=== PATIENT | male | born 1950 | race Caucasian/White ===

== ENCOUNTER → 2018-02-24 11:26 | Outpatient (CLI) | payer MEDICARE, SELFPAY ==
--- NOTE | 2018-02-24 | DI.CT.S_ITS ---
PROCEDURE: CT ABDOMEN PELVIS W CON INDICATIONS: right inguinal mass TECHNIQUE: After the administration of oral and intravenous contrast, 5 mm thick sections acquired from the diaphragms to the symphysis. 5 mm thick coronal and sagittal reformats were performed. For radiation dose reduction, the following was used: automated exposure control, adjustment of mA and/or kV according to patient size. COMPARISON: None. FINDINGS: Image quality: Excellent. ABDOMEN: Lung bases: Lung bases are clear. Heart size is normal. Solid organs: Liver is normal in size and enhancement. Note is made of a 1.2 cm right hepatic cyst just beneath the dome of the right hemidiaphragm. Gallbladder appears normal. Biliary system is non-dilated. Pancreas enhances normally. Spleen is normal in size and enhancement. No adrenal nodules. Kidneys are normal in size and enhancement, without hydronephrosis. Peritoneum and bowel: Stomach, small bowel, and colon loops are normal in caliber and wall thickness. No free fluid or air. Nodes and vessels: No retroperitoneal or mesenteric adenopathy. Aorta and inferior vena cava are normal in caliber. Miscellaneous: No ventral hernias. PELVIS: Genitourinary: Bladder wall thickness is normal. Miscellaneous: No adenopathy. There is a moderate-sized small bowel containing inguinal hernia on the right, and tracking inferiorly almost to the upper margin of the right hemiscrotum. No sign of edema is present that would indicate incarceration/strangulation. No obstructive influence on the bowel more superiorly is found. Bones: No suspicious bony lesions. No vertebral body compression fractures. IMPRESSION: 1. A moderate-sized right inguinal hernia is seen containing normal-appearing small bowel, and there is no sign of incarceration or strangulation of the bowel involved. 2. Reportedly there may be an inflammatory process in the perirectal region-no abscess or inflammation in this area is found. Note is made of moderate diverticulosis involving sigmoid colon, without acute diverticulitis. Dictated by: Jayme Anand M.D. on 02/24/2018 at 13:10 Approved by: Jayme Anand M.D. on 02/24/2018 at 13:13
== END ==
PROVIDERS: Family Provider Physician Assistant; PCP Psychiatry & Neurology Psychiatry; Visit Provider Nurse Practitioner Acute Care
DX: K40.90 Unilateral inguinal hernia, without obstruction or gangrene, not specified as recurrent (principal)
CPT/HCPCS: 74177; Q9967

== ENCOUNTER → 2018-03-22 09:26 | Outpatient (CLI) | payer MEDICARE, SELFPAY ==
--- NOTE | 2018-03-22 | DI.US.S_ITS ---
PROCEDURE: US ABD AORTA ANEURYSM SCREEN INDICATIONS: ABRORMAL AAA SCREENING TECHNIQUE: Real time scanning was performed of the aorta and iliac arteries, with image documentation. COMPARISON: None. FINDINGS: Aorta: Proximal aortic diameter measures 2.3 cm. Mid-aorta measures 1.6 cm. Distal aortic diameter is 1.5 cm. Iliac arteries: Right common iliac artery measures 1.1 cm. Left common iliac artery measures 1.0 cm. IMPRESSION: Negative for aneurysm Dictated by: Oj Barnes M.D. on 03/22/2018 at 11:32 Approved by: Oj Barnes M.D. on 03/22/2018 at 11:33
== END ==
PROVIDERS: Family Provider Physician Assistant; PCP Psychiatry & Neurology Psychiatry; Visit Provider Student in an Organized Health Care Education/Training Program
DX: Z13.6 Encounter for screening for cardiovascular disorders (principal)
CPT/HCPCS: 76706

== ENCOUNTER → 2018-04-03 12:39 | Outpatient (CLI) | payer MEDICARE, SELFPAY ==
[2018-04-03 13:18] LABS: Hematocrit 52.8 % (41-53); Hemoglobin 18.4 g/dL (13.5-17.5); Mean Corpuscular HGB Conc 34.9 % (30-36); Mean Corpuscular Hemoglobin 32.1 PG (26-34); Platelet Count 287 X10^3/uL (150-400); Red Blood Cell Count 5.74 X10^6/uL (4.5-5.9); Red Cell Distribution Width 13.6 % (11.6-14.8); White Blood Cell Count 7.7 X10^3/uL (4.5-11.0)
[2018-04-03 14:20] LABS: Alanine Aminotransferase 35 IU/L (21-72); Albumin 4.5 g/dL (3.5-5.0); Albumin Globulin Ratio 1.7 (1.0-2.8); Alkaline Phosphatase 58 U/L (38-126); Aspartate Aminotransferase 26 IU/L (17-59); BUN Creatinine Ratio 17.1 (6-22); Bilirubin Total 0.6 mg/dL (0.2-1.3); Blood Urea Nitrogen 12 mg/dL (9-20); Calcium 9.9 mg/dL (8.4-10.2); Carbon Dioxide 29 mmol/L (22-32); Chloride 99 mmol/L (98-107); Estimated Glomerular Filt Rate > 60.0 mL/min (>60); Globulin 2.7 g/dL (1.7-4.1); Glucose 97 mg/dL (80-110); HEMOLYSIS < 15 (0-50); Potassium 4.5 mmol/L (3.4-5.1); Sodium 140 mmol/L (137-145); Total Protein 7.2 g/dL (6.3-8.2)
== END ==
PROVIDERS: PCP Physician Assistant; Visit Provider Surgery
DX: K40.90 Unilateral inguinal hernia, without obstruction or gangrene, not specified as recurrent (principal); Z01.818 Encounter for other preprocedural examination
CPT/HCPCS: 36415; 80053; 85027; 93005

== ENCOUNTER 2018-04-07 07:56 | Day surgery (SDC) | payer MEDICARE, SELFPAY ==
[2018-04-04 09:34] VITALS: BMI 27.5
[2018-04-07] VITALS (14 sets, daily range): BP systolic 90–174; BP diastolic 70–115; PULSE 69–86; RESP 12–38; TEMP 36.1–36.6; O2SAT 90–98; BMI 27.5
[2018-04-07] MEDS: LACTATED RINGERS 1,000 ML 100 ML IV ×2 (08:42→11:32)
[2018-04-07] MEDS: CEFAZOLIN 2 GM/100 ML FROZ.PIGGY IV (09:29)
--- NOTE | 2018-04-07 10:00 | SUR.OPER ---
Supine on padded OR bed, head on pillow, arm padded and tucked at side, legs uncrossed, safety belt at thigh, tape over blanket over lower legs .
[2018-04-07] MEDS: BUPIVACAINE 0.25% W/ EPI VIAL 50 ML INJ ×2 (10:14→16:58)
--- NOTE | 2018-04-07 10:54 | PM.OP.1 ---
Operative Date/Time/Diagnoses Date of procedure: 04/07/18 Time of procedure: 10:54 Pre-op diagnosis: Enlarging Right inguinal hernia Post-op diagnosis: other (Direct reducible inguinal hernia containing small bowel with pantaloon component indirect sac reduced completely) Procedure & Clinicians Procedure: Laparoscopic right inguinal hernia repair with mesh, [address]116 Same procedure as scheduled: Yes Indications: Symptomatic enlarging RIH Surgeon: Donny Noe Click Yes if Unassisted: No Anesthesia Type: General Operative Notes Closure Type: primary Specimen(s): none sent Implants & Drains: Covidien parietex shaped R sided inguinal hernia mesh fixed with asorbatacks Estimated Blood Loss (mL): 5 Blood products transfused: none Procedure in detail: After informed consent was discussed with the patient and his daughter he was given antibiotics taken to the operating room and intubated by Dr. Hawk, SCDs were placed as left arm was tucked he was prepped and draped in the usual sterile fashion and a safety time-out completed. Small curvilinear incision was made in the infraumbilical fashion and we dissected subcutaneously to the right rectus anterior sheath and opened the anterior sheath. Stay sutures of 0 Vicryl were placed in the horizontal mattress fashion and the rectus muscle was opened and spared in the posterior sheath was found 12 mm balloon trocar was placed into the rectus muscle sheath and insufflation was begun. Patient was now placed in steep Trendelenburg position and using the 5 mm laparoscoped the retro rectus space was created into the preperitoneal space identifying the pubic tubercle and an obvious large right inguinal hernia which was incarcerated. The vertebral was followed along the arc of the pubis to the left crossing midline over above the inguinal hernia to the right opening up the lateral space to the right allowing placement for a low left-sided 5 mm trocar under direct vision avoiding the epigastric vessels and a right-sided trocar avoiding the epigastric vessels under direct vision. Obturator hernia was not seen we isolated out the direct hernia and the hernia sac was from the preperitoneal adipose and inter abdominal fat which was reduced and a moderate to large sized right direct hernia was clearly seen. Cord structures were now seen in an a fairly large indirect inguinal hernia sac was now dissected completely away from the cord structures preserving all vessels and vas deferens. The lateral area was opened to allow placement for the mesh tail. Once all structures were identified the right-sided Covidien preformed Parietex mesh was now placed in the preperitoneal space through the 12 mm trocar under direct vision and unfurled with the tail going out laterally. It was fixed Antoine's ligament with overlapping the midline covering our direct inguinal hernia completely tacks were placed in the rectus sheath along the conjoined tendon avoiding anything medial to the epigastric vessels several tacks were placed in Antoine's ligament tear avoiding anything posterior or near the great vessels. Mesh was then un continued unfurled and held in place anteriorly in rostrally wall the area was desufflated after looking for any bleeding both testicles were confirmed in the scrotum and the scrotum was desufflated after removing trocars. Stay sutures of the right anterior rectus sheath were now closed confirming the appropriate fascial approximation. Skin was now closed with 4 0 monofilament in a running or interrupted fashion and skin glue was placed the patient tolerated the procedure nicely was taken to the PACU after being extubated. Complications: none Condition: stable Disposition: PACU Plan for aftercare: [place] to home. Close follow up Instructions to daughter and patient Julio is an RN Oxycodone and tylenol Miralax
[2018-04-07] MEDS: fentaNYL 100 MCG/2 ML INJ 50 MCG IV ×2 (11:10→11:16)
--- NOTE | 2018-04-07 11:23 | PM.OP.1 ---
Operative Date/Time/Diagnoses Date of procedure: 04/07/18 Time of procedure: 10:23 Pre-op diagnosis: Symptomatic enlarging RIH Post-op diagnosis: other (Symptomatic enlarging RIH, Large direct component with indirect sac reduced completely. Pantaloon anatomy) Procedure & Clinicians Procedure: Laparscopic totally extraperitoneal Right inguinal hernia repair 07403 Same procedure as scheduled: No
--- NOTE | 2018-04-07 11:39 | SUR.PHASEI ---
pt did not wake up out of anesthesia easily . anesthesiologist remained a t bedside. pt kicking and thrashing unable to follow commands. pulling at all monitoring equipment, o2 and ivs. however was able to wake up and wean from oral airway, to simple mask to nasal canula and eventually room air. however it was noted that r groin appeared as if inguinal hernia returned. Dr Noe in to assess and decided to return to OR to reduce hernia again.
--- NOTE | 2018-04-07 12:00 | SUR.PHASEII ---
daughter aware of need to return to surgery and pt is now alert and orierbnted x 3. will hold in phase II until or IS AVAILABLE
--- NOTE | 2018-04-07 12:13 | PM.PN.1 ---
Subjective Date Patient Seen: 04/07/18 Time Patient Seen: 12:13 Interval history: Patient awoke from anesthesia and required 3 people to control him. He was tearing off his mask, kicking and bucking. Unfortunately his RIH has recurred in the PACU. After the anesthesia wore off, I re-examined him and found that his RIH may have recurred acutely with possible small intestine in the hernia again. I consented him and his daughter for return to the OR today for laparoscopic evaluation. He understands risks and benefits of surgery including infection, bleeding injury to large or small bowel, bladder and other. He wishes to proceed consent is signed. Exam Vital Signs (past 8 hours): - 04/07/18 08:35 04/07/18 10:50 04/07/18 10:55 Temperature 97.6 F 97 F L 98 F Pulse Rate 86 81 72 Respiratory Rate 16 34 H 38 H Blood Pressure 113/83 H 135/97 H 135/98 H Pulse Oximetry 93 90 L 98 04/07/18 11:00 04/07/18 11:15 04/07/18 11:30 Temperature 98 F 98 F 97.5 F L Pulse Rate 75 75 76 Respiratory Rate 12 16 15 Blood Pressure 168/111 H 174/114 H 153/115 H Pulse Oximetry 95 94 94 04/07/18 11:45 04/07/18 12:00 Temperature 97.5 F L 97.5 F L Pulse Rate 76 76 Respiratory Rate 16 16 Blood Pressure 148/104 H 142/102 H Pulse Oximetry 95 95 Oxygen Delivery Method Room Air Oxygen Flow Rate 2
--- NOTE | 2018-04-07 12:21 | P.OP_ITS ---
Operative Date/Time/Diagnoses Date of procedure: 04/07/18 Pre-op diagnosis: Possible recurrent right inguinal hernia acutely after repair. Post-op diagnosis: other (Lateral folding of the mesh with acute recurrence of inguinal hernia. Repaired with DARYL technique.) Procedure & Clinicians Indications: Patient is a very pleasant 68-year-old male who underwent a laparoscopic right direct and indirect inguinal hernia repair with preperitoneal technique earlier today. In the PACU he awoke with significant physical activity and disorientation, was kicking and thrashing trying to remove all oxygen masks and IVs. It took 3 people to restrain him. During this time the anesthesiologist alerted me that he felt his inguinal hernia repair may have dehisced or he may have caused a piece of bowel to slip under the mesh. I examined the patient and was concerned about similar finding the patient was calm down and after his anesthetic wore off was able to examine him and found similar concerns. His daughter was brought to the post anesthesia care unit and I discussed these findings as well as the need to return to the operating room today for laparoscopic evaluation and possible replacement or repositioning of the mesh as his hernia may have recurred and the possibility of a normal diagnostic laparoscopy without evidence of complication. The patient understands and wishes to proceed. Risks and benefits including infection bleeding injury to bowel injury to intra-abdominal contents injury to bladder all described. Surgeon: Donny Noe Click Yes if Unassisted: Yes Anesthesia Type: General Operative Notes Closure Type: primary Specimen(s): none sent Estimated Blood Loss (mL): 5 Blood products transfused: none Procedure in detail: Patient was taken to the operating room where general endotracheal anesthesia was performed SCDs have been placed and were functioning safety time-out completed both arms were tucked with gel pads to secure the operating room table prep and drape was performed in the usual sterile fashion. Prior infraumbilical incision was opened and using the visualizing 5 mm trocar the preperitoneal space was re-entered the mesh was still in place but it appeared that it has been medially retracted as a possible recurrent or persistent indirect inguinal hernia I then entered the peritoneal cavity with the same trocar under direct vision reinserting the trocar inserted and 4 quadrant laparoscopy showed no evidence of intra- abdominal or vascular injury. Patient was placed in steep reverse starts deep Trendelenburg position now on using the prior right and left lateral trocar sites local anesthetic was placed and 5 mm trocars were placed under direct vision the peritoneal investment was taken down over the arcuate line and the mesh was seen to be medialized and a peritoneal sac and resected around the mesh this was now re-reduced and the mesh was straightened and secured to the rectus fascia. 2 more tacks were placed in Antoine's ligament of the direct hernia was remained repaired well now the mesh was flattened the peritoneal cavity was then re-seated old with absorbent tacks anteriorly away from the entry of the ilioinguinal iliohypogastric nerves. Laparoscopic assessment of the peritoneal cavity was now performed with no bleeding or injury seen. Desufflation was performed. Skin was now closed with 4 0 monofilament and skin glue. 15 cc of 0.25% Marcaine with epinephrine was used for ilioinguinal block on the lateral ASIS just medial and in the abdominal wall as well as at all trocar sites with a total of 30 cc used. Patient was extubated without difficulty and taken to the PACU breathing on his own volition. Complications: none Condition: stable Disposition: PACU Plan for aftercare: Home after he voids. Avoid all heavy lifting Discussed findings with daughter Tiffanie.
--- NOTE | 2018-04-07 16:20 | SUR.PREOP ---
Pt remained in the OPD after his first surgery. His VS remained stable and he denied pain. He is resting quietly with his daughter at the bedside. at 1615 pt was taken back into the OR.
--- NOTE | 2018-04-07 16:43 | SUR.OPER ---
Supine on padded OR bed, head on pillow, safety belt at thigh, both arms padded and tucked at side. . Legs uncrossed. Padded footboard in place. Tape over blanket to secure lower legs.
--- NOTE | 2018-04-07 17:47 | SUR.PHASEI ---
This author has assumed care for this pt. as of 173. Pt. remains asleep and dghtr at bedside. VSS. Currently, lungs sounds clear, no sputum noted, oral airway remains in place and NC with O2 @ 4.5L/min
== END 2018-04-07 18:35 | disposition home or self-care (01) ==
PROVIDERS: Family Provider Physician Assistant; PCP Physician Assistant; Visit Provider Surgery
PROC: 0YQ54ZZ Repair Right Inguinal Region, Percutaneous Endoscopic Approach (ICD-10-PCS; CPT 49650; principal; 2018-04-07 09:15)
PROC: (CPT 45990; principal; 2018-04-07 13:45)
DX: K40.90 Unilateral inguinal hernia, without obstruction or gangrene, not specified as recurrent (principal); F33.9 Major depressive disorder, recurrent, unspecified; I10 Essential (primary) hypertension; Y83.8 Other surgical procedures as the cause of abnormal reaction of the patient, or of later complication, without mention of misadventure at the time of the procedure; Y73.3 Surgical instruments, materials and gastroenterology and urology devices (including sutures) associated with adverse incidents; Y92.234 Operating room of hospital as the place of occurrence of the external cause
CPT/HCPCS: 49650 ×2; C1781; J0690; J1100; J1885; J2250; J2405; J2704; J3010

== ENCOUNTER 2018-04-08 03:51 | Emergency (ER) | payer MEDICARE, SELFPAY ==
[2018-04-08 03:58] VITALS: BP 130/90; PULSE 109; RESP 20; TEMP 37; O2SAT 96; BMI 27.2
--- NOTE | 2018-04-08 04:08 | ED_ITS ---
HPI - Male Genitourinary General Chief complaint: Urogenital-Male Stated complaint: SURGERY COMPLICATIONS Time Seen by Provider: 04/08/18 03:57 Source: patient Mode of arrival: ambulatory Limitations: no limitations History of Present Illness HPI Narrative: 68-year-old male with chief complaint of inability to urinate since 6:00 a.m.. He was seen at our hospital and had a hernia repair today. He has increasing suprapubic tenderness but denies any fever or chills nor nausea or vomiting. He denies chest pain or shortness of breath Related Data Home Medications Medication Instructions Recorded Confirmed hydrochlorothiazide 12.5 mg PO DAILY #0 02/11/07 04/08/18 lisinopril 10 1 tab PO DAILY 04/03/18 04/08/18 mg-hydrochlorothiazide 12.5 mg tablet Previous Rx's Medication Instructions Recorded oxycodone 10 mg PO Q4-6H PRN #20 cap 04/07/18 Allergies Allergy/AdvReac Type Severity Reaction Status Date / Time hydromorphone [From Dilaudid] AdvReac Unknown Verified 04/08/18 03:58 meperidine [From Demerol] AdvReac Unknown Verified 04/08/18 03:58 Review of Systems Review of Systems All systems reviewed & are unremarkable except as noted in HPI and below Constitutional Denies chills, Denies fever(s), Denies lethargy and Denies weakness Eyes Denies change in vision, Denies eye discharge, Denies irritation and Denies loss of vision ENT Ears, Nose, Mouth, and Throat: Denies change in voice, Denies neck pain and Denies sore throat Cardiovascular Denies chest pain, Denies irregular heart rhythm, Denies lightheadedness, Denies palpitations, Denies dyspnea, Denies dyspnea on exertion and Denies orthopnea Respiratory Denies cough, Denies dyspnea, Denies dyspnea on exertion and Denies wheezing Gastrointestinal Gastrointestinal: Denies abdominal pain, Denies change in bowel habits, Denies diarrhea, Denies nausea and Denies vomiting Genitourinary Denies hematuria, Reports difficulty urinating, Denies flank pain, Denies urinary incontinence and Denies urinary urgency Musculoskeletal Denies neck pain Integumentary/Breasts Denies pruritus, Denies erythema, Denies rash and Denies wounds Neurologic Denies confusion, Denies loss of vision and Denies weakness Psychiatric Denies anxiety, Denies confusion, Denies depression, Denies homicidal ideation and Denies suicidal ideation Endocrine Denies palpitations Hematologic/Lymphatic Denies easy bruising Allergic/Immunologic Denies wheezing PFSH Medical History Depression (Chronic) Erythromelalgia (Chronic) HTN (hypertension) (Chronic) Umbilical hernia (Resolved) Surgical History H/O lithotripsy (Chronic) Social History household members: none Smoking Status: Never smoker alcohol intake: never substance use type: other Exam Initial Vital Signs Initial Vital Signs: Vital Signs Temperature 98.6 F 04/08/18 03:58 Pulse Rate 109 H 04/08/18 03:58 Respiratory Rate 20 04/08/18 03:58 Blood Pressure 130/90 H 04/08/18 03:58 Pulse Oximetry 96 04/08/18 03:58 Const General: cooperative, well developed and in distress Nutritional Appearance: well nourished Orientation: alert, awake, oriented x3 and not confused Resp Effort & Inspection: normal respiratory effort, able to speak in complete sentences, no respiratory distress and no use of accessory muscles Auscultation: clear to auscultation bilaterally, no rales, no rhonchi and no wheezes Cardio Rate: regular rate Rhythm: regular rhythm Heart Sounds: no click, no gallops, no murmurs and no rubs Pulses: normal peripheral pulses GI Inspection: non-distended Palpation: soft, no hepatosplenomegaly, No guarding, No pulsatile mass and tender (Minor suprapubic tenderness) Auscultation: normal bowel sounds Other: Incisions are clean, dry, and intact Skin General: no rashes or lesions noted, No jaundice and No petechiae Extrem General: full ROM, no clubbing, cyanosis or edema, no pedal edema and no calf tenderness Course Reevaluation(s) Reevaluation #1: Bladder scan notes 100+ mL in the bladder. Burns catheter easily placed the patient experiences near immediate relief Vital Signs - 8 hr 04/08/18 03:58 Temperature 98.6 F Pulse Rate 109 H Respiratory Rate 20 Blood Pressure 130/90 H Pulse Oximetry 96 Discharge Plan Departure Patient Disposition: Home, Self-Care Clinical Impression: Acute retention of urine Instructions: DI for Urinary Retention in Men Activity Restrictions/Additional Instructions: *You have been diagnosed with [ acute urinary retention ] *What to do: *Take medications as directed *Follow up with your surgeon or the urologist listed below in 2-3 days, call for an appointment. Let them know you were seen in the Emergency Department and that we ask that you be seen in follow up *Return to ER if you should have any new, worsening or concerning symptoms , such as [increasing pain, fever or chills, persistent nausea and vomiting, or other bothersome symptoms ] Prescriptions: No Action hydrochlorothiazide 12.5 mg Capsule 12.5 mg PO DAILY Qty: 0 RF: 0 lisinopril-hydrochlorothiazide 10-12.5 mg tablet 1 tab PO DAILY RF: 0 oxycodone 5 mg capsule 10 mg PO Q4-6H PRN (Reason: pain) Qty: 20 RF: 0 Referrals: Orlando Francis MD [Non-Staff] - Libby Kiser PA-C [Primary Care Provider] -
== END 2018-04-08 04:36 | disposition home or self-care (01) ==
PROVIDERS: Emergency Provider Emergency Medicine; Family Provider Physician Assistant; PCP Physician Assistant
DX: R33.9 Retention of urine, unspecified (principal)
CPT/HCPCS: 51701; 51798; 99283

== ENCOUNTER 2018-07-09 11:16 | Inpatient (IN) | payer MEDICARE, SELFPAY ==
[2018-07-09] VITALS (12 sets, daily range): BP systolic 93–133; BP diastolic 56–102; PULSE 69–110; RESP 15–20; TEMP 36.4–37.2; O2SAT 95–100; BMI 26.5
--- NOTE | 2018-07-09 | PATH_ITS ---
[facility] Accession Number: [id number] . 01 Material submitted: . INFECTED BUTTOCKS CYST . 01 Diagnosis: Buttocks, Excision: Epidermal inclusion cyst, ruptured, with marked inflammation, scar and reactive changes, microabscess formation, and areas with granulation tissue formation. MRV/07/14/2018 . 01 Electronically signed: . Eleanor Jim MD, Dermatopathologist NPI- [id number] . 01 Gross description: . Received in formalin, labeled infected buttocks cyst, are multiple pieces of chavis-yellow rubbery membranous and fatty tissue (5.5 x 4.5 x 1.8 cm in aggregate. The apparent resection margin is inked black. Fountain Helper serial sections submitted in cassettes A1 and A2. ([id number]) Additional sections: (A3, A4) Additional retail representative tissue. (:[id number]) /MRV . 01 Pathologist provided ICD-10: L72.0 . 01 CPT . 144709 Specimen Comment: A duplicate report has been generated due to demographic updates. Performed at: [address] [facility] [address], [place], [place] [id number] MD Alfred Shepherd MD Phone: [phone]
--- NOTE | 2018-07-09 11:16 | ER_ITS ---
HPI - Skin/Abscess/Foreign Bdy General Source: patient and family Mode of arrival: ambulatory Limitations: no limitations History of Present Illness HPI narrative: 68-year-old male, nonsmoker presents with a chief complaint of a painful abscess in his right buttock. He states this is the 8th time he has had a recurrence in the same location. He states it is very painful to sit. He denies fever or chills but feels a bit nauseated. He denies any pain with bowel movement. He denies any ongoing drainage. He has never had surgical consultation MD complaint: abscess/boil Onset (ago): day(s) Tetanus up to date: yes Location: buttocks Severity: moderate Pain Consistency: constant Relieving factors: none Exacerbating factors: palpation Context: none Associated symptoms: denies other symptoms Treatments prior to arrival: none Related Data Home Medications Medication Instructions Recorded Confirmed lisinopril 10 1 tab PO DAILY 04/03/18 07/26/18 mg-hydrochlorothiazide 12.5 mg tablet dextroamphetamine-amphetamine 20 mg PO BID 07/09/18 07/26/18 [Adderall] Allergies Allergy/AdvReac Type Severity Reaction Status Date / Time hydromorphone [From Dilaudid] AdvReac Unknown Verified 07/26/18 13:31 meperidine [From Demerol] AdvReac Unknown Verified 07/26/18 13:31 Review of Systems Review of Systems All systems reviewed & are unremarkable except as noted in HPI and below Constitutional Denies chills, Denies fever(s), Denies lethargy and Denies weakness Eyes Denies change in vision, Denies eye discharge, Denies irritation and Denies loss of vision ENT Ears, Nose, Mouth, and Throat: Denies change in voice, Denies neck pain and Denies sore throat Cardiovascular Denies chest pain, Denies irregular heart rhythm, Denies lightheadedness, Denies palpitations, Denies dyspnea, Denies dyspnea on exertion and Denies orthopnea Respiratory Denies cough, Denies dyspnea, Denies dyspnea on exertion and Denies wheezing Gastrointestinal Gastrointestinal: Denies abdominal pain, Denies change in bowel habits, Denies diarrhea, Denies nausea and Denies vomiting Genitourinary Denies hematuria, Denies flank pain, Denies urinary incontinence and Denies urinary urgency Musculoskeletal Denies neck pain Integumentary/Breasts Denies pruritus, Reports erythema, Denies rash, Reports skin pain, Reports skin swelling and Denies wounds Neurologic Denies confusion, Denies loss of vision and Denies weakness Psychiatric Denies anxiety, Denies confusion, Denies depression, Denies homicidal ideation and Denies suicidal ideation Endocrine Denies palpitations Hematologic/Lymphatic Denies easy bruising Allergic/Immunologic Denies wheezing [facility] Medical History Depression (Chronic) Erythromelalgia (Chronic) HTN (hypertension) (Chronic) Umbilical hernia (Resolved) Surgical History H/O vasectomy (Acute) History of tonsillectomy (Acute) H/O lithotripsy (Chronic) Family History Mother Congestive heart failure Father Pancreatic cancer Social History household members: none Smoking Status: Current every day smoker alcohol intake: never substance use type: other Exam Narrative Exam Narrative: GENERAL: This is a well-nourished, well-developed patient, in mild distress. HEAD: Atraumatic. Normocephalic. No temporal or scalp tenderness. EYES: Pupils equal round and reactive. Extraocular motions intact. No scleral icterus. No injection or drainage. ENT: Nose without bleeding, purulent drainage or septal hematoma. Throat without erythema, tonsillar hypertrophy or exudate. Uvula midline. Airway patent. NECK: Trachea midline. No JVD or lymphadenopathy. Supple, nontender, no meningeal signs. CARDIOVASCULAR: Regular rate and rhythm without murmurs, gallops, or rubs. RESPIRATORY: Clear to auscultation. Breath sounds equal bilaterally. No wheezes , rales, or rhonchi. GASTROINTESTINAL: Abdomen soft, non-tender, nondistended. No hepato-splenomegaly , or palpable masses. No guarding. Large fluctuant, presumably deep abscess on right buttock. No spontaneous drainage. No erythema extending to anus EXTREMITIES: No clubbing, cyanosis, or edema. No joint tenderness, effusion, or edema noted. BACK: Nontender without deformity or crepitance. No flank tenderness. NEURO: AOx3. SKIN: No rash or erythema except what is noted above Course Reevaluation(s) Reevaluation #1: Dr. Soni consulted given size of abscess and it's tendency to recur Discharge Plan Discharge Plan Discharge Problem: Abscess of buttock, right Patient Disposition: Admitted As Inpatient Discharge Med Rec/Prescriptions Prescriptions: No Action lisinopril-hydrochlorothiazide 10-12.5 mg tablet 1 tab PO DAILY RF: 0 dextroamphetamine-amphetamine [Adderall] 20 mg Tablet 20 mg PO BID RF: 0 Discharge Data Primary Care Provider: Libby Kiser Attending Provider: Chuck Liang Signed By:<Electronically signed by Ritchie Jimenez D.O.> 08/16/18 0882
[2018-07-09 12:16] LABS: Add Manual Diff / Slide Review NO; Basophils Percent Auto 0.3 % (0-2); Eosinophils Percent Auto 0.2 % (2-4); Hematocrit 47.4 % (41-53); Hemoglobin 16.2 g/dL (13.5-17.5); Lymphocytes Percent Auto 16.5 % (25-40); Mean Corpuscular HGB Conc 34.1 % (30-36); Mean Corpuscular Hemoglobin 31.2 PG (26-34); Mean Corpuscular Volume 91.3 fL (80-100); Monocytes Percent Auto 8.7 % (3-14); Neutrophils Absolute Auto 8900 /uL (3000-5900); Neutrophils Percent Auto 74.3 % (50-75); Platelet Count 313 X10^3/uL (150-400); Red Blood Cell Count 5.19 X10^6/uL (4.5-5.9)
[2018-07-09 12:26] LABS: Lactate (Lactic Acid) 1.3 mmol/L (0.7-2.1)
[2018-07-09] MEDS: SODIUM CHLORIDE 0.9% 1,000 ML 1000 ML IV (12:27)
[2018-07-09] MEDS: ONDANSETRON 4 MG/2 ML INJ IV (12:27)
[2018-07-09 12:28] LABS: BUN Creatinine Ratio 18.6 (6-22); Blood Urea Nitrogen 13 mg/dL (9-20); Calcium 8.8 mg/dL (8.4-10.2); Carbon Dioxide 29 mmol/L (22-32); Chloride 101 mmol/L (98-107); Estimated Glomerular Filt Rate > 60.0 mL/min (>60); Glucose 111 mg/dL (80-110); HEMOLYSIS < 15 (0-50); Potassium 3.4 mmol/L (3.4-5.1); Sodium 138 mmol/L (137-145)
--- NOTE | 2018-07-09 12:58 | PC.NURSE ---
Pt states he has never heard of this kind of enema (flepatsy). Is unhappy didnt have results
--- NOTE | 2018-07-09 14:31 | P.HP_ITS ---
History of Present Illness Date Patient Seen: 07/09/18 Time Patient Seen: 14:11 Chief complaint: abcess on top of butt Narrative: Patient is a gentleman with a recurrent abscess on his right buttock cheek. He has drain but never excised about 8 times over a 10 year. Often it spontaneously drains but has not done so this episode as of yet. He does not think he has ever been referred to a surgeon for excision but everybody says that it needs to be excised. He also gets a lesion the drains on his right lower lip. It is not inflamed at this time. He does not have any pain in his perirectal area. Pain increases with pressure on it. The symptoms began about 3 days ago. Patient History Medical History Depression (Chronic) Erythromelalgia (Chronic) HTN (hypertension) (Chronic) Umbilical hernia (Resolved) Surgical History H/O lithotripsy (Chronic) Family & Social History Family History: Reviewed 04/03/18 by Donny Noe MD Social History: household members none Safety & Behavioral: Feels Safe in Current Yes Environment Tobacco & Substance use: Smoking Status Current every day smoker alcohol intake never alcohol intake frequency 0-2 drinks per day Substance Use Type marijuana Meds Home Medications Medication Instructions Recorded Confirmed Type hydrochlorothiazide 12.5 mg PO DAILY #0 02/11/07 04/20/18 History lisinopril 10 1 tab PO DAILY 04/03/18 04/20/18 History mg-hydrochlorothiazide 12.5 mg tablet oxycodone 10 mg PO Q4-6H PRN #20 cap 04/07/18 04/08/18 Rx Allergies Allergy/AdvReac Type Severity Reaction Status Date / Time hydromorphone [From Dilaudid] AdvReac Unknown Verified 07/09/18 11:46 meperidine [From Demerol] AdvReac Unknown Verified 07/09/18 11:46 Review of Systems Review of Systems Patient denies fever chills night sweats. No visual difficulties other than wearing glasses. No double vision pain not eyes. No hearing problems or earaches. No tooth aches or trouble swallowing. No cough cold cold or asthma. No chest pain or heart problems. No black or bloody bowel movements. Last colonoscopy was about 15 years ago. Denies any blood in his urine or history kidney stones but is chart says he has had a lithotripsy. No dysuria. No seizures or blackouts. He has chronic depression and has been treated multiple times with electro shock therapy. Has chronic numbness of his feet from a neuropathy. No unusual bruising or bleeding. Exam Vital Signs (past 8 hours): - 07/09/18 11:26 07/09/18 13:00 Temperature 98.0 F Pulse Rate 110 H 91 H Respiratory Rate 19 18 Blood Pressure 133/102 H Blood Pressure [Right Arm] 117/81 Pulse Oximetry 100 98 Oxygen Delivery Method Room Air Narrative Exam Narrative: Operative pleasant gentleman lying on his side to avoid pressure to his buttock. No apparent distress. His eyes are nonicteric. Lungs are clear to auscultation no rales or rhonchi equal percussion. Heart regular rate and rhythm without murmur gallop. There are no bruits in the neck. Patient has no nodes in the neck or supraclavicular areas felt. Has a small cyst-like lesion at the edge of his jolene border right lateral lower lip. Trachea is midline and mobile. Thyroid is not enlarged. Abdomen is soft nontender. He has a scarred his umbilicus that is apparent. This is from a repair laparoscopically even inguinal hernia. Abdomen is otherwise soft nontender without mass. Patient is alert and oriented x3. Speech rate and content are appropriate. Affect is actually appropriate as well. Patient's left buttock cheap is bright red. In the center over what would be the ischial tuberosity is an area of induration flux central fluctuance. It is exquisitely tender. There is not really any redness extending toward the anus and the perianal tissues are not really tender or indurated. Objective Labs Result Diagrams: 07/09/18 12:00 07/09/18 12:00 Labs: Laboratory Results - last 24 hr 07/09/18 07/09/18 07/09/18 12:00 12:00 12:00 WBC 12.0 H RBC 5.19 Hgb 16.2 Hct 47.4 MCV 91.3 MCH 31.2 MCHC 34.1 RDW 13.0 Plt Count 313 Neut % (Auto) 74.3 Lymph % (Auto) 16.5 L [place] % (Auto) 8.7 Eos % (Auto) 0.2 L Baso % (Auto) 0.3 Neut # (Auto) 8900 H Sodium 138 Potassium 3.4 Chloride 101 Carbon Dioxide 29 BUN 13 Creatinine 0.70 Estimated GFR > 60.0 BUN/Creatinine Ratio 18.6 Glucose 111 H Lactate 1.3 Calcium 8.8 Assessment & Plan Plan: Assessment/Plan Narrative: Will proceed to drain a large abscess on his left buttock under general anesthesia. I have discussed the procedure with him. Risks of bleeding, infection, recurrence all discussed. I may or may not be able to excise the whole lesion. I may instead drain the pus and allowed the lesion to settle down and then excise it formally when the opening will be much smaller. It all depends on what I find. If the wall easily is dealt with I will excise it today. All questions were answered and he appears to understand and wishes to proceed.
--- NOTE | 2018-07-09 14:31 | PM.PREOP ---
Pre-operative Note Interval Note Pre-op Check: Yes History & Physical exam performed today by Physician Changes: No
[2018-07-09] MEDS: LACTATED RINGERS 1,000 ML 42 ML IV (14:58)
[2018-07-09] MEDS: CEFAZOLIN 2 GM/100 ML FROZ.PIGGY IV ×2 (15:15→22:50)
--- NOTE | 2018-07-09 16:14 | PM.OP.1 ---
Operative Date/Time/Diagnoses Date of procedure: 07/09/18 Time of procedure: 16:14 Post-op diagnosis: same (Probably chronically infected sebaceous cyst with abscess large of acute and chronic) Procedure & Clinicians Procedure: Incision and drainage of abscess excision of cyst wall. Abscess measured 8 x 8 cm. Cyst wall measured 4 x 6 cm Same procedure as scheduled: Yes Indications: Acute abscess in the face of chronic inflammation Surgeon: Kirt Soni Click Yes if Unassisted: Yes Anesthesia Type: General Operative Notes Findings: Very large abscess. Well-demarcated cyst wall. Chronic granulation tissue lining the cyst wall as well as the overlying skin Closure Type: non-primary (Not closed but packed open) Specimen(s): other (Culture plus cyst wall.) Implants & Drains: Packed open Estimated Blood Loss (mL): 40 Blood products transfused: none Procedure in detail: The patient was placed in the right lateral decubitus position on the OR bed after undergoing general LMA anesthesia. He was prepped and draped in usual fashion. Transverse incision was made overlying this abscess and a large amount of pus drained. It was cultured. I suctioned the pus out and examined the wall. There appeared to be a sebaceous cyst as the basis of this problem. I excise the wall which included tissues down to but did not seem to include the muscle fascia. After cutting away and noted that there was extensive granulation tissue under the skin. The measure of abscess on the external skin was about 8 x 8 cm. I debrided some of the skin but I used a curette and then sharply dissected tissue off of the overlying skin to remove all the granulation tissue. Once I was satisfied that the entire wall in all the granulation tissue was removed I obtained hemostasis with cautery. I irrigated the wound with saline copiously. Then I packed it with saline dampened Kerlix gauze covered with 4x4s. Dressing was applied and patient was awakened extubated taken to recovery area in good condition. Complications: none Condition: stable Disposition: PACU
[2018-07-09] MEDS: LACTATED RINGERS 1,000 ML 60 ML IV (16:59)
[2018-07-09] MEDS: OXYCODONE IR 5 MG TABLET 10 MG PO (17:05)
[2018-07-09] MEDS: GABAPENTIN 300 MG CAPSULE PO (21:05)
[2018-07-10] VITALS (7 sets, daily range): BP systolic 98–115; BP diastolic 61–85; PULSE 68–84; RESP 16–20; TEMP 36.5–37.2; O2SAT 96–98
[2018-07-10] MEDS: OXYCODONE IR 5 MG TABLET 10 MG PO ×2 (02:16→09:14)
--- NOTE | 2018-07-10 03:20 | PC.NURSE ---
Patient is moderate fall risk. Keeps defaulting to high risk.
[2018-07-10] MEDS: CEFAZOLIN 2 GM/100 ML FROZ.PIGGY IV ×3 (06:29→23:54)
[2018-07-10] MEDS: GABAPENTIN 300 MG CAPSULE PO ×2 (09:07→21:05)
[2018-07-10] MEDS: LACTATED RINGERS 1,000 ML 60 ML IV (10:38)
--- NOTE | 2018-07-10 11:39 | P.PN_ITS ---
Subjective Date Patient Seen: 07/10/18 Time Patient Seen: 11:36 Interval history: Has localized pain of the buttock but otherwise doing well. Denies fever chills. No nausea or vomiting. Pain controlled. The outer dressing has been replaced several times since surgery less than 24 hr ago. No issues with urine output or dysuria. Tolerating regular diet. Exam Vital Signs (past 8 hours): - 07/10/18 05:07 07/10/18 06:41 07/10/18 07:30 Temperature 97.7 F 98.1 F Pulse Rate 75 80 69 Respiratory Rate 16 16 Blood Pressure 98/61 105/67 101/66 Pulse Oximetry 96 97 Oxygen Delivery Method Room Air Narrative Exam Narrative: Patient seen and examined with the assistance of the attending nurse. Family is at the bedside to learn wound care. Well-nourished well-developed male in no acute distress. Alert oriented x3. Focused examination of the buttock wound shows skin flaps to be viable but still somewhat indurated and erythematous. No expansive cellulitis however. No purulent drainage from the cavity. Packing is removed and replaced. Early granulation is present and the wound bed is quite clean. No purulent debris remains. Patient tolerated wound care well at the bedside. Family voiced understanding. Objective Labs Result Diagrams: 07/09/18 12:00 07/09/18 12:00 Labs: Laboratory Results - last 24 hr 07/09/18 07/09/18 07/09/18 12:00 12:00 12:00 WBC 12.0 H RBC 5.19 Hgb 16.2 Hct 47.4 MCV 91.3 MCH 31.2 MCHC 34.1 RDW 13.0 Plt Count 313 Neut % (Auto) 74.3 Lymph % (Auto) 16.5 L [place] % (Auto) 8.7 Eos % (Auto) 0.2 L Baso % (Auto) 0.3 Neut # (Auto) 8900 H Sodium 138 Potassium 3.4 Chloride 101 Carbon Dioxide 29 BUN 13 Creatinine 0.70 Estimated GFR > 60.0 BUN/Creatinine Ratio 18.6 Glucose 111 H Lactate 1.3 Calcium 8.8 Gram stain from the wound drainage shows no organisms but several white blood cells. Final cultures are still pending. Blood cultures are pending as well. Assessment & Plan Plan: Assessment/Plan Narrative: 68-year-old male postoperative day 1 from incision and drainage as well as debridement of buttock abscess. Cultures are still pending. He has evidence of some mild cellulitis and induration that persist. Would recommend at least another day of intravenous antibiotics while cultures are reported. Perform twice daily wet-to-dry saline packing changes. He may shower and ambulate as tolerated. Saline lock IV currently. He is on his usual home medications and pain is well controlled with oral analgesia. Likely home tomorrow with wound care as above. All questions were answered to his satisfaction, and he voiced understanding. Orders were written.
--- NOTE | 2018-07-10 14:02 | CM.DANOTE ---
DCP/Assessment: Reviewed chart. Patient is a 68yr old male admitted to . as inpatient with abscess on his buttocks. Attending physician is Dr. Soni. Primary payor is 1)Medicare. PCP listed is Libby Kiser. Met with patient explained CM/SW role. Patient alert and oriented at time of visit. Patient reports that he plans to d/c home when medically stable. Patient has supportive daughter/Tiffanie that can assist on dressing changes. Patient had abscess removed via surgery on 07-09-18. Currently patient requiring IV abx and dressing changes. It is anticipated that patient will d/c on po abx. Patient reports that prior to admit he was I with all ADL's. Patient has struggled over the years with depression and associates that with divorce, loss of job, and homelessness. Patient reports that he feels like he is finally getting back on my feet. Patient and daughter deny need for mental health resources. Patient's daughter entered room during interview and confirms that she can assist with dressing changes. Patient agreeable. Patient with concerns related to medical bills and his insurance. Provided patient with information for Medicare open enrollment and Medicaid. Encouraged patient to do now because of open enrollment period for both. Patient and daughter in agreement. P: Home when medically stable. Daughter agreeable to be taught/do dressing changes. Patient aware and agreeable. JIE Carrasco Discharge Planning/Care Management Discharge Assessment Start: 07/10/18 13:38 Freq: Status: Active Protocol: Document 07/10/18 13:38 KJS (Rec: 07/10/18 14:02 KJS [id number]) Discharge Planning Assessment Assigned Wafer Cutter JIE Carrasco Contact Information Tiffanie Fast cell# [phone] (daughter) Advance Directives? No History Provided By Patient Family Member Has Patient been admitted in last 30 No days? Prior Living Arrangements Apartment/Condo Household Members none Type of transporation used prior to Drives own vehicle admit Independent with ADL's Yes Is patient alert and oriented? Yes Caregiver for Another No Barriers to Discharge No Comment Daughter/Tiffanie agreeable to do dressing changes. Discharge Plan Home Transportation Arrangement Family to provide transport. Referrals Initiated None needed Whiteboard Updated in Patient Room with Yes name and ext. # of Wafer Cutter Review Status In Process Next Review Type Continued Stay Review
[2018-07-11 00:10] VITALS: BP 124/80; PULSE 80; RESP 18; TEMP 36.7; O2SAT 98
[2018-07-11 05:30] VITALS: BP 112/80; PULSE 83; RESP 18; TEMP 36.7; O2SAT 97
[2018-07-11] MEDS: CEFAZOLIN 2 GM/100 ML FROZ.PIGGY IV (06:26)
[2018-07-11 08:00] VITALS: BP 125/82; PULSE 73; RESP 16; TEMP 36.9; O2SAT 99
[2018-07-11] MEDS: LISINOPRIL 10 MG TABLET PO (08:06)
[2018-07-11] MEDS: hydroCHLOROthiazide 12.5 MG CAPSULE PO (08:06)
[2018-07-11] MEDS: GABAPENTIN 300 MG CAPSULE PO (08:06)
[2018-07-11 11:47] VITALS: BP 120/86; PULSE 71; RESP 18; TEMP 36.8; O2SAT 97
[2018-07-11 16:18] VITALS: BP 112/74; PULSE 81; RESP 16; TEMP 36.6; O2SAT 96
--- NOTE | 2018-07-11 17:34 | PC.NURSE ---
Peg shift note: Patient awake and alert, S/P I&D to left mid buttock near midline, wound opening approximately 2.5 cm diameter, pink granulation noted, trace amount of eschar. Undermining to 8 o clock region, approximately 1cm. No abnormal drainage or active bleeding. Wet to dry dressing change performed with gauze packing, dressed with abdominal dressing and secured. Patient tolerated well. Assisted to private vehicle via wheel chair in stable condition.
--- NOTE | 2018-07-11 20:41 | PM.DS.1 ---
History of Present Illness Chief complaint: abcess on top of butt Narrative: Patient is a gentleman with a recurrent abscess on his right buttock cheek. He has drain but never excised about 8 times over a 10 year. Often it spontaneously drains but has not done so this episode as of yet. He does not think he has ever been referred to a surgeon for excision but everybody says that it needs to be excised. He also gets a lesion the drains on his right lower lip. It is not inflamed at this time. He does not have any pain in his perirectal area. Pain increases with pressure on it. The symptoms began about 3 days ago. Discharge Providers Date of admission: 07/09/18 13:02 Primary care physician: Libby Kiser PA-C Consults: 07/09/18 16:39 Consult to Discharge Planning Routine Comment: Discharge provider: Kirt Soni MD Discharge Date: 07/11/18 Summary Discharge Diagnosis: Complex recurrent buttock abscess most likely related to a chronically infected sebaceous cyst. Pathology pending. Essential hypertension Hospital Course: Patient was taken to the operating room where a cord out this chronically infected tissue and remove the skin and fat over it. The wound was left open. It was packed. The patient was begun on broad-spectrum antibiotic but this was stopped when the culture came back no growth. The patient was clinically improved and he was discharged to follow up in the office. Was instructed in wound care. His sister is a nurse who will help him. He was given pain medication. Status at Discharge Cognitive/behavioral status at discharge: Normal Functional status at discharge: independent ambulation Overall status at discharge: patient is back to baseline Time Spent with Patient Less than 30 minutes Time spent discussing smoking cessation with patient: 3 to 10 minutes Exam Vital Signs (past 8 hours): Oxygen Delivery Method Room Air Oxygen Flow Rate 0 Objective Labs Result Diagrams: 07/09/18 12:00 07/09/18 12:00 Discharge Plan Discharge Plan Patient Disposition: Home Discharge comment: You had a large abscess and sebaceous cyst which I removed. We can probably stop your antibiotics. Her cultures did not grow any bacteria. The drainage may change collar an even become green. This would not be unusual. However, if it gets harder or the pain increases significantly call your doctor. If you need to reach the doctor after hours call the office and hold until the paging wire bound box machine operator picks up. During working our somewhat should be there to answer your call. Our office #[phone] Discharge Med Rec/Prescriptions Prescriptions: Continue lisinopril-hydrochlorothiazide 10-12.5 mg tablet 1 tab PO DAILY RF: 0 dextroamphetamine-amphetamine [Adderall] 20 mg Tablet 20 mg PO BID RF: 0 Follow up/Referrals: Jay Lundy MD [Physician] - 07/17/18 2:15 pm Libby Kiser PA-C [Primary Care Provider] - Provider Discharge Instructions Diet: Diet as Tolerated Activity: Avoid a lot of pressure to the area. Skin/Wound/Dressing Care Report to your healthcare provider any signs of infection, such as:: chills, fever Dressing: Change at least once a day plus after bowel movements. After bowel movement get in the shower remove all of the gauze and rinse the area along with your anus well. Do not go from your anus to the wound but rather from the wound to your anus. After rinsing off padded everything dry and repack the wound. Visit Report/Discharge Packet Instructions: DI for Epidermal Cyst, DI for Incision and Drainage of a Skin Abscess Visit Report Forms: Stroke Signs & Symptoms Discharge Data Primary Care Provider: Libby Kiser Attending Provider: Kirt Soni Admit Date/Time: 07/09/18 13:02 Discharges patient from system. Discharge Date/Time: 07/11/18 17:37
== END 2018-07-11 17:37 | disposition home or self-care (01) | DRG 572 ==
LOC: ED 12:04 → AC 07-10 08:07
PROVIDERS: Admitting Provider Specialist; Emergency Provider Emergency Medicine; Family Provider Physician Assistant; PCP Physician Assistant; Visit Provider Specialist
PROC: 0J990ZZ Drainage of Buttock Subcutaneous Tissue and Fascia, Open Approach (ICD-10-PCS; CPT 46040; principal; 2018-07-09 14:45)
DX: L02.31 Cutaneous abscess of buttock (principal); F32.9 Major depressive disorder, single episode, unspecified; I10 Essential (primary) hypertension; F17.210 Nicotine dependence, cigarettes, uncomplicated
CPT/HCPCS: 36415; 36591; 80048; 83605; 85025; 87040; 87070; 87075; 87205; 88304; 96361; 96374; 99283; 99284; 99406; J0690; J2405; J2704; J3010

== ENCOUNTER → 2018-07-19 15:19 | Outpatient (CLI) | payer MEDICARE, SELFPAY ==
[2018-07-09 15:46] VITALS: BMI 26.5
--- NOTE | 2018-07-21 22:02 | ED.SKABFB ---
HPI - Skin/Abscess/Foreign Bdy General Source: patient and family Mode of arrival: ambulatory Limitations: no limitations History of Present Illness HPI narrative: 68-year-old male, nonsmoker presents with a chief complaint of a painful abscess in his right buttock. He states this is the 8th time he has had a recurrence in the same location. He states it is very painful to sit. He denies fever or chills but feels a bit nauseated. He denies any pain with bowel movement. He denies any ongoing drainage. He has never had surgical consultation MD complaint: abscess/boil Onset (ago): day(s) Tetanus up to date: yes Location: buttocks Severity: moderate Pain Consistency: constant Relieving factors: none Exacerbating factors: palpation Context: none Associated symptoms: denies other symptoms Treatments prior to arrival: none Related Data Home Medications Medication Instructions Recorded Confirmed lisinopril 10 1 tab PO DAILY 04/03/18 07/26/18 mg-hydrochlorothiazide 12.5 mg tablet dextroamphetamine-amphetamine 20 mg PO BID 07/09/18 07/26/18 [Adderall] Allergies Allergy/AdvReac Type Severity Reaction Status Date / Time hydromorphone [From Dilaudid] AdvReac Unknown Verified 07/26/18 13:31 meperidine [From Demerol] AdvReac Unknown Verified 07/26/18 13:31 Review of Systems Review of Systems All systems reviewed & are unremarkable except as noted in HPI and below Constitutional Denies chills, Denies fever(s), Denies lethargy and Denies weakness Eyes Denies change in vision, Denies eye discharge, Denies irritation and Denies loss of vision ENT Ears, Nose, Mouth, and Throat: Denies change in voice, Denies neck pain and Denies sore throat Cardiovascular Denies chest pain, Denies irregular heart rhythm, Denies lightheadedness, Denies palpitations, Denies dyspnea, Denies dyspnea on exertion and Denies orthopnea Respiratory Denies cough, Denies dyspnea, Denies dyspnea on exertion and Denies wheezing Gastrointestinal Gastrointestinal: Denies abdominal pain, Denies change in bowel habits, Denies diarrhea, Denies nausea and Denies vomiting Genitourinary Denies hematuria, Denies flank pain, Denies urinary incontinence and Denies urinary urgency Musculoskeletal Denies neck pain Integumentary/Breasts Denies pruritus, Reports erythema, Denies rash, Reports skin pain, Reports skin swelling and Denies wounds Neurologic Denies confusion, Denies loss of vision and Denies weakness Psychiatric Denies anxiety, Denies confusion, Denies depression, Denies homicidal ideation and Denies suicidal ideation Endocrine Denies palpitations Hematologic/Lymphatic Denies easy bruising Allergic/Immunologic Denies wheezing [facility] Medical History Depression (Chronic) Erythromelalgia (Chronic) HTN (hypertension) (Chronic) Umbilical hernia (Resolved) Surgical History H/O vasectomy (Acute) History of tonsillectomy (Acute) H/O lithotripsy (Chronic) Family History Mother Congestive heart failure Father Pancreatic cancer Social History household members: none Smoking Status: Current every day smoker alcohol intake: never substance use type: other Exam Narrative Exam Narrative: GENERAL: This is a well-nourished, well-developed patient, in mild distress. HEAD: Atraumatic. Normocephalic. No temporal or scalp tenderness. EYES: Pupils equal round and reactive. Extraocular motions intact. No scleral icterus. No injection or drainage. ENT: Nose without bleeding, purulent drainage or septal hematoma. Throat without erythema, tonsillar hypertrophy or exudate. Uvula midline. Airway patent. NECK: Trachea midline. No JVD or lymphadenopathy. Supple, nontender, no meningeal signs. CARDIOVASCULAR: Regular rate and rhythm without murmurs, gallops, or rubs. RESPIRATORY: Clear to auscultation. Breath sounds equal bilaterally. No wheezes, rales, or rhonchi. GASTROINTESTINAL: Abdomen soft, non-tender, nondistended. No hepato-splenomegaly, or palpable masses. No guarding. Large fluctuant, presumably deep abscess on right buttock. No spontaneous drainage. No erythema extending to anus EXTREMITIES: No clubbing, cyanosis, or edema. No joint tenderness, effusion, or edema noted. BACK: Nontender without deformity or crepitance. No flank tenderness. NEURO: AOx3. SKIN: No rash or erythema except what is noted above Course Reevaluation(s) Reevaluation #1: Dr. Soni consulted given size of abscess and it's tendency to recur Discharge Plan Discharge Plan Discharge Problem: Abscess of buttock, right Patient Disposition: Admitted As Inpatient Discharge Med Rec/Prescriptions Prescriptions: No Action lisinopril-hydrochlorothiazide 10-12.5 mg tablet 1 tab PO DAILY RF: 0 dextroamphetamine-amphetamine [Adderall] 20 mg Tablet 20 mg PO BID RF: 0 Discharge Data Primary Care Provider: Libby Kiser Attending Provider: Chuck Liang
--- NOTE | 2018-07-21 22:06 | ED_ITS ---
HPI - Skin/Abscess/Foreign Bdy General Source: patient and family Mode of arrival: ambulatory Limitations: no limitations History of Present Illness HPI narrative: 68-year-old male, nonsmoker presents with a chief complaint of a painful abscess in his right buttock. He states this is the 8th time he has had a recurrence in the same location. He states it is very painful to sit. He denies fever or chills but feels a bit nauseated. He denies any pain with bowel movement. He denies any ongoing drainage. He has never had surgical consultation MD complaint: abscess/boil Onset (ago): day(s) Tetanus up to date: yes Location: buttocks Severity: moderate Pain Consistency: constant Relieving factors: none Exacerbating factors: palpation Context: none Associated symptoms: denies other symptoms Treatments prior to arrival: none Related Data Home Medications Medication Instructions Recorded Confirmed lisinopril 10 1 tab PO DAILY 04/03/18 07/26/18 mg-hydrochlorothiazide 12.5 mg tablet dextroamphetamine-amphetamine 20 mg PO BID 07/09/18 07/26/18 [Adderall] Allergies Allergy/AdvReac Type Severity Reaction Status Date / Time hydromorphone [From Dilaudid] AdvReac Unknown Verified 07/26/18 13:31 meperidine [From Demerol] AdvReac Unknown Verified 07/26/18 13:31 Review of Systems Review of Systems All systems reviewed & are unremarkable except as noted in HPI and below Constitutional Denies chills, Denies fever(s), Denies lethargy and Denies weakness Eyes Denies change in vision, Denies eye discharge, Denies irritation and Denies loss of vision ENT Ears, Nose, Mouth, and Throat: Denies change in voice, Denies neck pain and Denies sore throat Cardiovascular Denies chest pain, Denies irregular heart rhythm, Denies lightheadedness, Denies palpitations, Denies dyspnea, Denies dyspnea on exertion and Denies orthopnea Respiratory Denies cough, Denies dyspnea, Denies dyspnea on exertion and Denies wheezing Gastrointestinal Gastrointestinal: Denies abdominal pain, Denies change in bowel habits, Denies diarrhea, Denies nausea and Denies vomiting Genitourinary Denies hematuria, Denies flank pain, Denies urinary incontinence and Denies urinary urgency Musculoskeletal Denies neck pain Integumentary/Breasts Denies pruritus, Reports erythema, Denies rash, Reports skin pain, Reports skin swelling and Denies wounds Neurologic Denies confusion, Denies loss of vision and Denies weakness Psychiatric Denies anxiety, Denies confusion, Denies depression, Denies homicidal ideation and Denies suicidal ideation Endocrine Denies palpitations Hematologic/Lymphatic Denies easy bruising Allergic/Immunologic Denies wheezing [facility] Medical History Depression (Chronic) Erythromelalgia (Chronic) HTN (hypertension) (Chronic) Umbilical hernia (Resolved) Surgical History H/O vasectomy (Acute) History of tonsillectomy (Acute) H/O lithotripsy (Chronic) Family History Mother Congestive heart failure Father Pancreatic cancer Social History household members: none Smoking Status: Current every day smoker alcohol intake: never substance use type: other Exam Narrative Exam Narrative: GENERAL: This is a well-nourished, well-developed patient, in mild distress. HEAD: Atraumatic. Normocephalic. No temporal or scalp tenderness. EYES: Pupils equal round and reactive. Extraocular motions intact. No scleral icterus. No injection or drainage. ENT: Nose without bleeding, purulent drainage or septal hematoma. Throat without erythema, tonsillar hypertrophy or exudate. Uvula midline. Airway patent. NECK: Trachea midline. No JVD or lymphadenopathy. Supple, nontender, no meningeal signs. CARDIOVASCULAR: Regular rate and rhythm without murmurs, gallops, or rubs. RESPIRATORY: Clear to auscultation. Breath sounds equal bilaterally. No wheezes , rales, or rhonchi. GASTROINTESTINAL: Abdomen soft, non-tender, nondistended. No hepato-splenomegaly , or palpable masses. No guarding. Large fluctuant, presumably deep abscess on right buttock. No spontaneous drainage. No erythema extending to anus EXTREMITIES: No clubbing, cyanosis, or edema. No joint tenderness, effusion, or edema noted. BACK: Nontender without deformity or crepitance. No flank tenderness. NEURO: AOx3. SKIN: No rash or erythema except what is noted above Course Reevaluation(s) Reevaluation #1: Dr. Soni consulted given size of abscess and it's tendency to recur Discharge Plan Discharge Plan Discharge Problem: Abscess of buttock, right Patient Disposition: Admitted As Inpatient Discharge Med Rec/Prescriptions Prescriptions: No Action lisinopril-hydrochlorothiazide 10-12.5 mg tablet 1 tab PO DAILY RF: 0 dextroamphetamine-amphetamine [Adderall] 20 mg Tablet 20 mg PO BID RF: 0 Discharge Data Primary Care Provider: Libby Kiser Attending Provider: Chuck Liang
== END | disposition admitted as inpatient to this hospital (09) ==
PROVIDERS: Family Provider Physician Assistant; PCP Physician Assistant; Visit Provider Family Medicine
DX: L02.31 Cutaneous abscess of buttock (principal); S31.829A Unspecified open wound of left buttock, initial encounter; E11.628 Type 2 diabetes mellitus with other skin complications
CPT/HCPCS: 99204; 99212

== ENCOUNTER → 2018-07-26 14:54 | Outpatient (CLI) | payer MEDICARE, SELFPAY ==
[2018-07-09 15:46] VITALS: BMI 26.5
== END ==
PROVIDERS: Family Provider Physician Assistant; PCP Student in an Organized Health Care Education/Training Program; Visit Provider Family Medicine
DX: L02.31 Cutaneous abscess of buttock (principal); S31.829A Unspecified open wound of left buttock, initial encounter
CPT/HCPCS: 11042

== ENCOUNTER → 2018-08-02 13:09 | Outpatient (CLI) | payer MEDICARE, SELFPAY ==
[2018-07-09 15:46] VITALS: BMI 26.5
== END ==
PROVIDERS: Family Provider Physician Assistant; PCP Student in an Organized Health Care Education/Training Program; Visit Provider Family Medicine
DX: L02.31 Cutaneous abscess of buttock (principal); S31.829A Unspecified open wound of left buttock, initial encounter
CPT/HCPCS: 11042; 99212

== ENCOUNTER → 2018-08-09 14:43 | Outpatient (CLI) | payer MEDICARE, SELFPAY ==
[2018-07-09 15:46] VITALS: BMI 26.5
== END ==
PROVIDERS: Family Provider Physician Assistant; PCP Student in an Organized Health Care Education/Training Program; Visit Provider Family Medicine
DX: L02.31 Cutaneous abscess of buttock (principal); S31.829A Unspecified open wound of left buttock, initial encounter
CPT/HCPCS: 11042

== ENCOUNTER → 2018-08-21 13:02 | Outpatient (CLI) | payer MEDICARE, SELFPAY ==
[2018-07-09 15:46] VITALS: BMI 26.5
== END ==
PROVIDERS: Family Provider Physician Assistant; PCP Student in an Organized Health Care Education/Training Program; Visit Provider Family Medicine
DX: L02.31 Cutaneous abscess of buttock (principal); S31.829A Unspecified open wound of left buttock, initial encounter
CPT/HCPCS: 97597

== ENCOUNTER → 2018-08-28 10:10 | Outpatient (CLI) | payer MEDICARE, SELFPAY ==
[2018-08-23 10:38] VITALS: BMI 26.5
== END ==
PROVIDERS: Family Provider Physician Assistant; PCP Student in an Organized Health Care Education/Training Program; Visit Provider Family Medicine
DX: Z48.817 Encounter for surgical aftercare following surgery on the skin and subcutaneous tissue (principal)
CPT/HCPCS: 99212

== ENCOUNTER → 2021-01-26 19:05 | Outpatient (ROUT) | payer MEDICARE, SELFPAY ==
[2018-08-23 10:38] VITALS: BMI 26.5
[2021-01-26 19:44] LABS: Alanine Aminotransferase 29 IU/L (<50); Albumin Globulin Ratio 1.6 (1.0-2.8); Alkaline Phosphatase 62 U/L (38-126); Aspartate Aminotransferase 32 IU/L (17-59); BUN Creatinine Ratio 15.1 (6-22); Bilirubin Total 0.9 mg/dL (0.2-1.3); Blood Urea Nitrogen 14 mg/dL (9-20); Calcium 9.2 mg/dL (8.4-10.2); Carbon Dioxide 29 mmol/L (22-32); Chloride 101 mmol/L (98-107); Cholesterol 175 mg/dL (140-199); Estimated Glomerular Filt Rate > 60.0 mL/min (>60); Globulin 2.5 g/dL (1.7-4.1); Glucose 103 mg/dL (80-110); HDL Cholesterol 56 mg/dL (40-60); HEMOLYSIS < 15 (0-50); LDL Cholesterol Calculated 90 mg/dL (<100); Potassium 4.1 mmol/L (3.4-5.1); Sodium 138 mmol/L (137-145); Total Protein 6.5 g/dL (6.3-8.2); Triglycerides 147 mg/dL (35-150)
[2021-01-26 20:12] LABS: Hematocrit 51.5 % (41-53); Hemoglobin 17.5 g/dL (13.5-17.5); Mean Corpuscular HGB Conc 34.1 % (30-36); Mean Corpuscular Hemoglobin 33.6 PG (26-34); Mean Corpuscular Volume 98.5 fL (80-100); Platelet Count 253 X10^3/uL (150-400); Red Blood Cell Count 5.23 X10^6/uL (4.5-5.9); Red Cell Distribution Width 13.5 % (11.6-14.8)
[2021-01-26 21:17] LABS: Add Manual Diff / Slide Review NO; White Blood Cell Count 7.1 X10^3/uL (4.5-11.0)
== END ==
PROVIDERS: Family Provider Physician Assistant; PCP Student in an Organized Health Care Education/Training Program; Visit Provider Student in an Organized Health Care Education/Training Program
DX: I10 Essential (primary) hypertension (principal); G62.9 Polyneuropathy, unspecified; Z13.220 Encounter for screening for lipoid disorders
CPT/HCPCS: 80053; 80061; 85025